=== PATIENT | male | born 1995 | race Asian ===

== ENCOUNTER 2016-10-23 14:30 | Emergency (ER) | payer OTHER ==
[~2016-10-23] VITALS: Ht 182.9 cm; Wt 72.6 kg
[2016-10-23 14:38] VITALS: BP 130/69; PULSE 67; RESP 18; TEMP 98.3; O2SAT 98
[2016-10-23 17:36] VITALS: BP 120/70; PULSE 68; RESP 18; TEMP 98.3; O2SAT 98
== END 2016-10-23 17:36 | disposition home or self-care (01) ==
LOC: SED 14:30
DX: S16.1XXA Strain of muscle, fascia and tendon at neck level, initial encounter (principal); S43.401A Unspecified sprain of right shoulder joint, initial encounter; S70.01XA Contusion of right hip, initial encounter; T23.112A Burn of first degree of left thumb (nail), initial encounter; V43.52XA Car driver injured in collision with other type car in traffic accident, initial encounter; Y93.89 Activity, other specified; Y92.488 Other paved roadways as the place of occurrence of the external cause; Y99.8 Other external cause status
CPT/HCPCS: 70450-TC; 71010; 72125-TC; 73502; 99284